=== PATIENT | male | born 1970 | race Caucasian/White ===

== ENCOUNTER 2018-11-01 17:36 | Emergency (ER) | payer MEDICAID, OTHER ==
[~2018-11-01] VITALS: Ht 190.5 cm; Wt 100.0 kg
[~2018-11-01 17:36] MED LIST: CLIN300C85 PO
[2018-11-01 17:49] VITALS: BP 129/80
[2018-11-01] MEDS ORDERED: LIDOcaine 1.5% w/epinephrine 1:200,000 5ml ampul IJ ONE (17:50)
[2018-11-01] MEDS ORDERED: LIDOcaine 1% w/epiNEPHrine 1:200,000 30ml vial IJ ONE (17:55)
--- NOTE | 2018-11-01 17:58 | NUR ---
[employer] WILL BE IN AT 1900
[2018-11-01] MEDS ORDERED: HYDR-4353 PO (19:40)
[2018-11-01] MEDS ORDERED: AMOX-580 PO (19:40)
== END 2018-11-01 20:04 | disposition home or self-care (01) ==
LOC: ER 17:37
DX: S62.633B Displaced fracture of distal phalanx of left middle finger, initial encounter for open fracture (principal); F11.90 Opioid use, unspecified, uncomplicated; Z79.2 Long term (current) use of antibiotics; Z79.899 Other long term (current) drug therapy; W26.0XXA Contact with knife, initial encounter; Y93.89 Activity, other specified; Y92.89 Other specified places as the place of occurrence of the external cause; Y99.8 Other external cause status
CPT/HCPCS: 11760; 12002; 73130; 99284; J3490

== ENCOUNTER 2018-11-18 07:54 | Emergency (ER) | payer MEDICAID ==
[~2018-11-18] VITALS: Ht 190.5 cm; Wt 75.0 kg
[~2018-11-18 07:54] MED LIST changes: +AMOX-580 PO
[2018-11-18 07:59] VITALS: BP 148/71
== END 2018-11-18 08:21 | disposition home or self-care (01) ==
LOC: ER 07:55
DX: S61.211D Laceration without foreign body of left index finger without damage to nail, subsequent encounter (principal); S61.213D Laceration without foreign body of left middle finger without damage to nail, subsequent encounter; M79.645 Pain in left finger(s); F11.90 Opioid use, unspecified, uncomplicated; X58.XXXD Exposure to other specified factors, subsequent encounter
CPT/HCPCS: 99281

== ENCOUNTER 2018-11-21 09:45 | Day surgery (SDC) | payer MEDICAID ==
[2018-11-21] MEDS ORDERED: LIDOcaine 2% 5ml jelly ONE (11:11)
[2018-11-21] MEDS ORDERED: mupirocin 2% ointment 22GM ONE (11:38)
--- NOTE | 2018-11-21 12:00 | NUR ---
Patient ambulated independently from [facility] and was admitted to outpatient wound care for physician visit with Pedro Ly MD. Dressing removed, wound cleansed and lidocaine applied per order. New patient assessment completed with review of patient medical history and current medications. 1120 - Dr. Ly at bedside accompanied by RN. Wound assessed, time out performed by MD/RN. Wound debrided as detailed in the physician progress/procedure note. Plan of care discussed with patient. Dressings placed per MD orders. Patient instructed on the signs and symptoms of infection and to call the Wound Center if any occur or to go to the ED if we are closed: Increased pain in wound Increase in drainage from the wound Redness in the skin surrounding the wound Bleeding from the wound Temperature of 101 or greater Patient instructed that the weight of their body puts a large amount of pressure on their wounds. This pressure keeps the new tissue from growing and inhibits new blood vessels from forming. Explained that, if they continue to bear weight on a body part that has a wound, the time it takes to heal the wound increases, the wound may get worse or the wound may not heal at all. Patient verbalized understanding of all discharge instructions and plan of care and ambulated independently out to [facility] in stable condition with no sign or symptom of distress at time of discharge.
[2018-11-21] MEDS ORDERED: NO HOME MEDS (16:46)
== END 2018-11-21 11:49 | disposition home or self-care (01) ==
LOC: WOUND CARE 09:45
PROVIDERS: ATTEND Surgery
DX: L98.492 Non-pressure chronic ulcer of skin of other sites with fat layer exposed (principal); F11.90 Opioid use, unspecified, uncomplicated; F17.200 Nicotine dependence, unspecified, uncomplicated; Z79.2 Long term (current) use of antibiotics; Z79.899 Other long term (current) drug therapy; Z87.442 Personal history of urinary calculi
CPT/HCPCS: 97597; A6021; A6206

== ENCOUNTER 2018-11-29 09:50 | Day surgery (SDC) | payer MEDICAID ==
[~2018-11-29 09:50] MED LIST changes: -AMOX-580 PO; -CLIN300C85 PO; +NO HOME MEDS
[2018-11-29] MEDS ORDERED: LIDOcaine/PRILOcaine 5gm cream TP ONE (10:03)
--- NOTE | 2018-11-29 11:00 | NUR ---
Patient ambulated independently from [facility] and was admitted to outpatient wound care for physician visit with Pedro Ly MD. Dressing removed, wound cleansed and Emla cream applied per order. Patient assessed for changes in conditions, medications and medical history. 1015 - Dr. Ly at bedside accompanied by RN. Wound assessed, time out performed by MD/RN. Wound debrided as detailed in the physician progress/procedure note. Plan of care discussed with patient. Dressings placed per MD orders. Patient instructed on the signs and symptoms of infection and to call the Wound Center if any occur or to go to the ED if we are closed: Increased pain in wound Increase in drainage from the wound Redness in the skin surrounding the wound Bleeding from the wound Temperature of 101 or greater Patient instructed that the weight of their body puts a large amount of pressure on their wounds. This pressure keeps the new tissue from growing and inhibits new blood vessels from forming. Explained that, if they continue to bear weight on a body part that has a wound, the time it takes to heal the wound increases, the wound may get worse or the wound may not heal at all. Patient verbalized understanding of all discharge instructions and plan of care and ambulated independently out to [facility] in stable condition with no sign or symptom of distress at time of discharge.
== END 2018-11-29 11:00 | disposition home or self-care (01) ==
LOC: WOUND CARE 09:50
PROVIDERS: ATTEND Surgery
DX: L98.492 Non-pressure chronic ulcer of skin of other sites with fat layer exposed (principal); F11.90 Opioid use, unspecified, uncomplicated; F17.200 Nicotine dependence, unspecified, uncomplicated; Z79.2 Long term (current) use of antibiotics; Z79.899 Other long term (current) drug therapy; Z87.442 Personal history of urinary calculi
CPT/HCPCS: 97597; A6021; A6206

== ENCOUNTER 2018-12-06 09:50 | Day surgery (SDC) | payer MEDICAID ==
[2018-12-06] MEDS ORDERED: LIDOcaine/PRILOcaine 5gm cream TP ONE (10:51)
--- NOTE | 2018-12-06 11:54 | NUR ---
Patient ambulated independently from [facility] and was admitted to outpatient wound care for physician visit with Pedro Ly MD. Dressing removed, wound cleansed and Emla cream applied per order. Patient assessed for changes in conditions, medications and medical history. 1055 - Dr. Ly at bedside accompanied by RN. Wound assessed, time out performed by MD/RN. Wound debrided as detailed in the physician progress/procedure note. Plan of care discussed with patient. Dressings placed per MD orders. Patient instructed on the signs and symptoms of infection and to call the Wound Center if any occur or to go to the ED if we are closed: Increased pain in wound Increase in drainage from the wound Redness in the skin surrounding the wound Bleeding from the wound Temperature of 101 or greater Patient instructed that the weight of their body puts a large amount of pressure on their wounds. This pressure keeps the new tissue from growing and inhibits new blood vessels from forming. Explained that, if they continue to bear weight on a body part that has a wound, the time it takes to heal the wound increases, the wound may get worse or the wound may not heal at all. Patient verbalized understanding of all discharge instructions and plan of care and ambulated independently out to [facility] in stable condition with no sign or symptom of distress at time of discharge.
== END 2018-12-06 11:05 | disposition home or self-care (01) ==
LOC: WOUND CARE 09:50
PROVIDERS: ATTEND Surgery
DX: L98.492 Non-pressure chronic ulcer of skin of other sites with fat layer exposed (principal); F11.90 Opioid use, unspecified, uncomplicated; F17.200 Nicotine dependence, unspecified, uncomplicated; Z79.2 Long term (current) use of antibiotics; Z79.899 Other long term (current) drug therapy; Z87.442 Personal history of urinary calculi
CPT/HCPCS: 97597; A6021; A6206

== ENCOUNTER 2018-12-13 10:16 | Day surgery (SDC) | payer MEDICAID ==
[2018-12-13] MEDS ORDERED: LIDOcaine/PRILOcaine 5gm cream TP ONE (10:42)
--- NOTE | 2018-12-13 14:55 | NUR ---
Patient ambulated independently from [facility] and was admitted to outpatient wound care for physician visit with Pedro Ly MD. Dressing removed, wound cleansed and Emla cream applied per order. Patient assessed for changes in conditions, medications and medical history. Dr. Ly at bedside accompanied by RN. Wound assessed, time out performed by MD/RN. Wound debrided as detailed in the physician progress/procedure note. Plan of care discussed with patient. Dressings placed per MD orders. Patient instructed on the signs and symptoms of infection and to call the Wound Center if any occur or to go to the ED if we are closed: Increased pain in wound Increase in drainage from the wound Redness in the skin surrounding the wound Bleeding from the wound Temperature of 101 or greater Patient instructed that the weight of their body puts a large amount of pressure on their wounds. This pressure keeps the new tissue from growing and inhibits new blood vessels from forming. Explained that, if they continue to bear weight on a body part that has a wound, the time it takes to heal the wound increases, the wound may get worse or the wound may not heal at all. Patient verbalized understanding of all discharge instructions and plan of care and ambulated independently out to [facility] in stable condition with no sign or symptom of distress at time of discharge. Addendum: 12/13/18 at 1456 by Rosa Madsen RN Amended: Links added.
== END 2018-12-13 11:10 | disposition home or self-care (01) ==
LOC: WOUND CARE 10:16
PROVIDERS: ATTEND Surgery
DX: L98.492 Non-pressure chronic ulcer of skin of other sites with fat layer exposed (principal); F11.90 Opioid use, unspecified, uncomplicated; F17.200 Nicotine dependence, unspecified, uncomplicated; Z79.2 Long term (current) use of antibiotics; Z79.899 Other long term (current) drug therapy; Z87.442 Personal history of urinary calculi
CPT/HCPCS: 11042; A6209; A6021; A6206

== ENCOUNTER 2018-12-20 09:52 | Day surgery (SDC) | payer MEDICAID ==
--- NOTE | 2018-12-20 11:44 | NUR ---
Patient ambulated independently from [facility] and was admitted to outpatient wound care for physician visit with Pedro Ly MD. Dressing removed and wound cleansed. Patient assessed for changes in conditions, medications and medical history. Dr. Ly at bedside accompanied by RN. Wound assessed, time out performed by MD/RN. Wound debrided as detailed in the physician progress/procedure note. Plan of care discussed with patient. Dressings placed per MD orders. Patient instructed on the signs and symptoms of infection and to call the Wound Center if any occur or to go to the ED if we are closed: Increased pain in wound Increase in drainage from the wound Redness in the skin surrounding the wound Bleeding from the wound Temperature of 101 or greater Patient instructed that the weight of their body puts a large amount of pressure on their wounds. This pressure keeps the new tissue from growing and inhibits new blood vessels from forming. Explained that, if they continue to bear weight on a body part that has a wound, the time it takes to heal the wound increases, the wound may get worse or the wound may not heal at all. Patient verbalized understanding of all discharge instructions and plan of care and ambulated independently out to [facility] in stable condition with no sign or symptom of distress at time of discharge. Addendum: 12/20/18 at 1147 by Rosa Madsen RN Amended: Links added.
== END 2018-12-20 11:56 | disposition home or self-care (01) ==
LOC: WOUND CARE 09:52
PROVIDERS: ATTEND Surgery
DX: L98.492 Non-pressure chronic ulcer of skin of other sites with fat layer exposed (principal); F11.90 Opioid use, unspecified, uncomplicated; F17.200 Nicotine dependence, unspecified, uncomplicated; Z79.2 Long term (current) use of antibiotics; Z79.899 Other long term (current) drug therapy; Z87.442 Personal history of urinary calculi
CPT/HCPCS: 97597; A6209; A6021; A6206

== ENCOUNTER 2018-12-27 09:57 | Day surgery (SDC) | payer MEDICAID ==
[2018-12-27] MEDS ORDERED: LIDOcaine/PRILOcaine 5gm cream TP ONE (10:09)
--- NOTE | 2018-12-27 11:00 | NUR ---
Patient ambulated independently from [facility] and was admitted to outpatient wound care for physician visit with Pedro Ly MD. Dressing removed, wound cleansed and Emla cream applied per order. Patient assessed for changes in conditions, medications and medical history. 1036 - Dr. Ly at bedside accompanied by RN. Wound assessed, time out performed by MD/RN. Wound debrided as detailed in the physician progress/procedure note. Plan of care discussed with patient. Dressings placed per MD orders. Patient instructed on the signs and symptoms of infection and to call the Wound Center if any occur or to go to the ED if we are closed: Increased pain in wound Increase in drainage from the wound Redness in the skin surrounding the wound Bleeding from the wound Temperature of 101 or greater Patient verbalized understanding of all discharge instructions and plan of care and ambulated independently out to [facility] in stable condition with no sign or symptom of distress at time of discharge.
== END 2018-12-27 10:46 | disposition home or self-care (01) ==
LOC: WOUND CARE 09:57
PROVIDERS: ATTEND Surgery
DX: L98.492 Non-pressure chronic ulcer of skin of other sites with fat layer exposed (principal); F11.90 Opioid use, unspecified, uncomplicated; F17.200 Nicotine dependence, unspecified, uncomplicated; Z79.2 Long term (current) use of antibiotics; Z79.899 Other long term (current) drug therapy; Z87.442 Personal history of urinary calculi
CPT/HCPCS: 97597; A6446; A6021; A6206

== ENCOUNTER 2019-06-10 22:07 | Emergency (ER) | payer MEDICAID ==
[~2019-06-10] VITALS: Ht 190.5 cm; Wt 72.8 kg
[2019-06-10] MEDS ORDERED: CefTRIAXone 1000mg IM Kit (w/lidocaine diluent) IM ONE (22:20)
[2019-06-10] MEDS ORDERED: CEPH-571 PO (22:20)
[2019-06-10 22:39] VITALS: BP 124/66
== END 2019-06-10 22:40 | disposition home or self-care (01) ==
LOC: ER 22:08
DX: L03.115 Cellulitis of right lower limb (principal); F11.90 Opioid use, unspecified, uncomplicated; Z79.899 Other long term (current) drug therapy
CPT/HCPCS: 96372; 99283; J0696

== ENCOUNTER 2020-02-08 09:42 | Emergency (ER) | payer MEDICAID ==
[~2020-02-08] VITALS: Ht 190.5 cm; Wt 90.9 kg
[~2020-02-08 09:42] MED LIST changes: +CEPH-571 PO
[2020-02-08 09:47] VITALS: BP 134/78
[2020-02-08] MEDS ORDERED: LIDOcaine 1% W/epiNEPHrine 1:100,000 20ml vial SQ ONE (10:00)
[2020-02-08] MEDS ORDERED: HYDROcodone/acetaminophen 10/325mg tab PO ONE (10:20)
[2020-02-08] MEDS ORDERED: amox tr/potassium clavulanate 875/125mg TAB PO ONE (10:20)
--- NOTE | 2020-02-08 10:28 | NUR ---
Portable XR at bedside.
[2020-02-08] MEDS ORDERED: AMOX-117 PO (11:22)
== END 2020-02-08 11:58 | disposition home or self-care (01) ==
LOC: ER 09:43
DX: S81.811A Laceration without foreign body, right lower leg, initial encounter (principal); S30.810A Abrasion of lower back and pelvis, initial encounter; L03.115 Cellulitis of right lower limb; F11.90 Opioid use, unspecified, uncomplicated; Z87.442 Personal history of urinary calculi; W54.0XXA Bitten by dog, initial encounter; Y93.89 Activity, other specified; Y92.89 Other specified places as the place of occurrence of the external cause; Y99.8 Other external cause status
CPT/HCPCS: 12004; 73590; 99283